=== PATIENT | male | born 1970 | race Caucasian/White ===

== ENCOUNTER 2022-01-21 20:30 | Emergency (ER) | payer BC, OTHER ==
[2022-01-21 20:39] VITALS: BP 108/66; PULSE 87; TEMP 98.6; BMI 26.3
[2022-01-21] MEDS ORDERED: DIPHTH,PERTUSS(ACELL),TET 0.5 ML DISP.SYRIN IM ONE ×2 (21:09→21:14)
== END 2022-01-21 21:52 | disposition home or self-care (01) ==
LOC: JER 20:30 → JERFT 20:30
PROC: 3E0234Z Introduction of Serum, Toxoid and Vaccine into Muscle, Percutaneous Approach (ICD-10-PCS; principal; 2022-01-21)
DX: S09.90XA Unspecified injury of head, initial encounter (principal); S01.81XA Laceration without foreign body of other part of head, initial encounter; W01.0XXA Fall on same level from slipping, tripping and stumbling without subsequent striking against object, initial encounter; Y93.02 Activity, running
CPT/HCPCS: 90715; 99284-25

== ENCOUNTER 2022-05-31 20:10 | Emergency (ER) | payer BC ==
[2022-05-31 20:29] VITALS: TEMP 97.8; BMI 26.3
[2022-05-31 20:30] VITALS: BP 133/94; PULSE 83
== END 2022-05-31 20:39 | disposition home or self-care (01) ==
LOC: FER 20:10
DX: F10.21 Alcohol dependence, in remission (principal)
CPT/HCPCS: 99283-25

== ENCOUNTER 2022-09-27 08:18 | Emergency (ER) | payer BC ==
[2022-09-27] MEDS ORDERED: chlordiazePOXIDE HCL 25 MG CAPSULE PO ONE (08:48)
[2022-09-27] MEDS ORDERED: chlordiazePOXIDE HCL 25 MG CAPSULE ONE (08:53)
[2022-09-27 08:59] VITALS: BP 154/101; PULSE 103; RESP 18; TEMP 98.4; BMI 26.4
== END 2022-09-27 09:20 | disposition home or self-care (01) ==
LOC: FER 08:18
DX: F10.230 Alcohol dependence with withdrawal, uncomplicated (principal)
CPT/HCPCS: 99283-25